=== PATIENT | female | born 1955 | race Caucasian/White ===

== ENCOUNTER 2022-10-12 16:32 | Outpatient (REF) | payer MEDICARE, BC, SELFPAY ==
--- OUTSIDE RECORDS SUMMARY | 2022-10-12 16:36 | XMS_ITS | CCD ---
Author Name Unknown Address [address] [place] [address] [phone] Organization Unknown Address [address] [place] [address] [phone] Care Team Providers Care Hoisting Engine Operator Name Role Phone YANCY MANTILLA Attending Physician [phone] Vital Signs Unknown or Not Available. Allergies Allergy Code Allergy Type Reaction Status SULFA (sulfonamide) 0 Drug allergy RASH Act jelena Procedures Unknown or Not Available. History of Immunizations Unknown or Not Available. Problems Unknown or Not Available. Results IRON - Collect Date/Time: 09:39 Test Name Code Test Result Test Units Test Ref Rang e IRON 2498-4 89 ug/dL L=35 H=150 IRON BINDING CAPACITY - Oma ect Date/Time: 04/22/2021 09:39 Test Name Code Test Result Test Units Test Ref Rang e IBC 2500-7 298 ug/dL L=260 H=445 CBC W/ DIFFERENTIAL* - Colle ct Date/Time: 04/22/2021 09:39 Test Name Code Test Result Test Units Test Ref Rang e WBC 6690-2 4.23 th/cmm L=5.00 H=10.00 NEUT % 41.4 % L=40.0 H=80.0 LYMPH % 44.0 % L=10.0 H=50.0 MONO % 20671-2 9.9 % L=2.0 H=12.0 EOS % 3.3 % L=0.0 H=8.0 BASO % 1.2 % L=0.0 H=3.0 IG % 2514-8 0.2 % L=0.0 H=1.1 NRBC % 10358-8 0.0 % L=0.0 H=0.0 NEUT abs count 751-8 1.8 th/cmm L=1.6 H=8. 4 LYMPH abs count 731-0 1.9 th/cmm L=1.5 H=4 .0 MONO abs count 742-7 0.4 th/cmm L=0.2 H=1. 0 EOS abs count 711-2 0.1 th/cmm L=0.0 H=0.5 BASO abs count 704-7 0.1 th/cmm L=0.0 H=0. 2 IG abs count 08077-5 0.0 th/cmm L=0.0 H=0.1 NRBC abs count 13375-4 0.0 mil/cmm L=0.0 H=0. 0 RBC 789-8 4.05 mil/cmm L=3.90 H=5.40 HEMOGLOBIN 718-7 13.3 gm/dL L=12.0 H=16.0 HEMATOCRIT 4544-3 39 % L=37 H=47 MCV 787-2 97 fL L=82 H=92 MCH 785-6 32.8 pg L=27.0 H=31.0 MCHC 786-4 33.9 % L=32.0 H=36.0 RDW-SD 788-0 43.2 fL L=39.0 H=49.0 PLATELET COUNT 777-3 240 th/cmm L=150 H=45 0 ANDROSTENEDIONE - Collect Da te/Time: 04/22/2021 09:39 Test Name Code Test Result Test Units Test Ref Rang e Androstenedione, S 1854-9 104 N/A 30-200 DHEA-S (DEHYDROEPIANDROSTERO NE SULFATE) - Collect Date/Time: 04/22/2021 09:39 Test Name Code Test Result Test Units Test Ref Rang e DHEA Sulfate 94 N/A 34-79 Active Medications Unknown or Not Available. Medications Administered During Visit Unknown or Not Available. Encounters Encounter Diagnosis Diagnosis Code Start Date Non-scarring alopecia 946649367 04/22/2021 Social History Smoking Status Code Start Date End Date Never smoker [id number] Patient Decision Aids Unknown or Not Available. Discharge Instructions You were admitted to [facility] on 04/22/2021 09:10 with a principal diagnosis of Nonscarring hair loss, unspecified You had the following tests done:ANDROSTENEDIONECBC W/ DIFFERENTIAL*DHEA-S (DEHYDROEPIANDROSTERONE SULFATE)IRONIRON BINDING CAPACITY You were discharged from [facility] on 04/22/2021 09:10 Should you have any questions prior to discharge, please contact a member of your healthcare team. If you have left the hospital and have any questions, please contact your primary care physician. Chief Complaint and Reason For Visit Unknown or Not Available. Function Status Unknown or Not Available. Plan of Care Unknown or Not Available. Referral/Transition of Care Unknown or Not Available.
--- OUTSIDE RECORDS SUMMARY | 2022-10-12 16:36 | XMS_ITS | CCD ---
Author Name Unknown Address [address] [place] [address] [phone] Organization Unknown Address [address] [place] [address] [phone] Care Team Providers Care Pet Trainer Name Role Phone QUOC DEJESUS Attending Physician [phone] Vital Signs Unknown or Not Available. Allergies Allergy Code Allergy Type Reaction Status SULFA (sulfonamide) 0 Drug allergy RASH Act jelena Procedures Unknown or Not Available. History of Immunizations Unknown or Not Available. Problems Unknown or Not Available. Results [facility] COVID RHEONIX* - Oma ect Date/Time: 06/27/2021 09:40 Test Name Code Test Result Test Units Test Ref Rang e Tier- 93267-9 TRAVEL N/A SARS COV2 RNA: 46895-5 NEGATIVE N/A REFERENCE RANGE: NEGAT Active Medications Unknown or Not Available. Medications Administered During Visit Unknown or Not Available. Encounters Encounter Diagnosis Diagnosis Code Start Date Exposure to SARS-CoV-2 [id number] Social History Smoking Status Code Start Date End Date Never smoker [id number] Patient Decision Aids Unknown or Not Available. Discharge Instructions You were admitted to [facility] on 06/27/2021 14:48 with a principal diagnosis of Contact with and (suspected) exposure to COVID-19 You had the following tests done:AMAN COVID RHEONIX* You were discharged from [facility] on 06/27/2021 14:48 Should you have any questions prior to [...]
--- OUTSIDE RECORDS SUMMARY | 2022-10-12 16:37 | XMS_ITS | CCD ---
Author Name Unknown Address [address] [place] [address] [phone] Organization Unknown Address [address] [place] [address] [phone] Care Team Providers Care Fire Officer Name Role Phone JIMBO BONILLA Attending Physician [phone] Vital Signs Unknown or Not Available. Allergies Allergy Code Allergy Type Reaction Status SULFA (sulfonamide) 0 Drug allergy RASH Act jelena Procedures Unknown or Not Available. History of Immunizations Unknown or Not Available. Problems Unknown or Not Available. Results THYROID TESTING CASCADE* - C ollect Date/Time: 11/16/2021 10:09 Test Name Code Test Result Test Units Test Ref Rang e TSH. 3014-8 2.196 uIU/mL L=0.360 H=3.74 0 CBC W/ DIFFERENTIAL* - Colle ct Date/Time: 11/16/2021 10:09 Test Name Code Test Result Test Units Test Ref Rang e WBC 6690-2 7.99 th/cmm L=5.00 H=10.00 NEUT % 69.4 % L=40.0 H=80.0 LYMPH % 20.9 % L=10.0 H=50.0 MONO % 54033-1 7.6 % L=2.0 H=12.0 EOS % 0.8 % L=0.0 H=8.0 BASO % 1.0 % L=0.0 H=3.0 IG % 2514-8 0.3 % L=0.0 H=1.1 NRBC % 36614-7 0.0 % L=0.0 H=0.0 NEUT abs count 751-8 5.6 th/cmm L=1.6 H=8. 4 LYMPH abs count 731-0 1.7 th/cmm L=1.5 H=4 .0 MONO abs count 742-7 0.6 th/cmm L=0.2 H=1. 0 EOS abs count 711-2 0.1 th/cmm L=0.0 H=0.5 BASO abs count 704-7 0.1 th/cmm L=0.0 H=0. 2 IG abs count 35212-5 0.0 th/cmm L=0.0 H=0.1 NRBC abs count 72225-7 0.0 mil/cmm L=0.0 H=0. 0 RBC 789-8 3.79 mil/cmm L=3.90 H=5.40 HEMOGLOBIN 718-7 12.2 gm/dL L=12.0 H=16.0 HEMATOCRIT 4544-3 36 % L=37 H=47 MCV 787-2 96 fL L=82 H=92 MCH 785-6 32.2 pg L=27.0 H=31.0 MCHC 786-4 33.6 % L=32.0 H=36.0 RDW-SD 788-0 44.6 fL L=39.0 H=49.0 PLATELET COUNT 777-3 271 th/cmm L=150 H=45 0 CLOSTRIDIUM DIFFICILE BY PCR * - Collect Date/Time: 11/16/2021 07:00 Test Name Code Test Result Test Units Test Ref Rang e Consistency = 55008-8 LOOSE/SOFT N/A C. DIFFICILE DNA 69315-6 NEGATIVE N/A Normal: Negative LACTOFERRIN DETECTION STOOL - Collect Date/Time: 11/16/2021 07:00 Test Name Code Test Result Test Units Test Ref Rang e Consistency: LOOSE/SOFT N/A Lactoferrin stool POSITIVE N/A HELICOBACTER PYLORI AG FECES - Collect Date/Time: 11/16/2021 07:00 Test Name Code Test Result Test Units Test Ref Rang e H. pylori Stool Antigen Negative N/A N egative Active Medications Unknown or Not Available. Medications Administered During Visit Unknown or Not Available. Encounters Encounter Diagnosis Diagnosis Code Start Date Diarrhea [id number] 11/16/2021 Social History Smoking Status Code Start Date End Date Never smoker [id number] Patient Decision Aids Unknown or Not Available. Discharge Instructions You were admitted to [facility] on 11/16/2021 09:50 with a principal diagnosis of Diarrhea, unspecified You had the following tests done:CBC W/ DIFFERENTIAL*THYROID TESTING CASCADE*CLOSTRIDIUM DIFFICILE BY PCR*HELICOBACTER PYLORI AG FECESLACTOFERRIN DETECTION STOOL You were discharged from [facility] on 11/16/2021 09:50 Should you have any questions prior to [...]
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
== END 2022-10-12 16:33 | disposition home or self-care (01) ==
LOC: NCHCN 16:32
PROVIDERS: Visit Provider Family Medicine
DX: L65.9 Nonscarring hair loss, unspecified (principal)
CPT/HCPCS: 84443

== ENCOUNTER 2024-11-17 17:38 | Outpatient (REF) | payer MEDICARE, BC, SELFPAY ==
[2024-11-17 19:02] LABS: Anion Gap 6.9 mmol/L (3-11); BUN 16 mg/dL (7-18); CO2 30.1 mmol/L (21.0-32.0); Calcium 9.6 mg/dL (8.5-10.1); Calculated LDL 114 mg/dL (<100); Chloride 104 mmol/L (98-107); Cholesterol 193 mg/dL (<200); Estimated GFR 69.20 (mL/min/1.73m2); Glucose 95 mg/dL (74-106); HDL Cholesterol 71 mg/dL (>or=50); Potassium 4.7 mmol/L (3.5-5.1); Sodium 141 mmol/L (136-145); TSH 3.31 uIU/mL (0.36-3.74); Triglyceride 41 mg/dL (<150)
== END 2024-11-17 17:39 | disposition home or self-care (01) ==
LOC: NCHCN 17:38
PROVIDERS: PCP Family Medicine; Visit Provider Family Medicine
DX: E78.49 Other hyperlipidemia (principal)
CPT/HCPCS: 80048; 80061; 84443